=== PATIENT | female | born 1995 | race Caucasian/White ===

== ENCOUNTER 2018-09-12 08:59 | Day surgery (SDC) | payer OTHER ==
[~2018-09-12 08:59] MED LIST: CEFAZOLIN 2 GM/50 ML (PMX) 50 ML IVPB; NEOSTIGMINE 3 MG/3 ML SYRINGE; SOD CHLORIDE 0.9% 1,000 ML IV
[2018-09-12] MEDS ORDERED: IPRATROPIUM (NEB) 0.5 MG/2.5 ML AMP HHN (13:00)
[2018-09-12] MEDS ORDERED: DIPHENHYDRAMINE 50 MG INJ IV (13:00)
[2018-09-12] MEDS ORDERED: ALBUTEROL 0.083% (NEB) 2.5 MG/3 ML AMP HHN (13:00)
[2018-09-12] MEDS ORDERED: TRIMETHOBENZAMIDE 100 MG/ML VIAL IM (13:00)
[2018-09-12] MEDS ORDERED: EPHEDrine SULFATE 50 MG/5 ML SYG IV (13:00)
[2018-09-12] MEDS ORDERED: OXYCODONE/ACETAMINOPHEN (5/325) TAB PO ×2 (13:00)
[2018-09-12] MEDS ORDERED: FENTAnyl 50 MCG/ML VIAL IV ×3 (13:00)
[2018-09-12] MEDS ORDERED: LABETALOL HCL 20MG INJ IV (13:00)
[2018-09-12] MEDS ORDERED: hydrALAzine 20 MG INJ IV (13:00)
[2018-09-12] MEDS ORDERED: HYDROmorphONE 1 MG/5 ML IV SYRINGE IV (13:00)
[2018-09-12] MEDS ORDERED: ROCURONIUM 50 MG INJ (13:06)
[2018-09-12] MEDS ORDERED: GLYCOPYRROLATE 0.4 MG INJ (13:06)
[2018-09-12] MEDS ORDERED: DEXAMETHASONE 4 MG/ML 5 ML INJ (13:06)
[2018-09-12] MEDS ORDERED: PROPOFOL 20 ML (13:06)
[2018-09-12] MEDS ORDERED: CEFAZOLIN 1 GM INJ (13:06)
[2018-09-12] MEDS ORDERED: ONDANSETRON 4 MG INJ (13:06)
[2018-09-12] MEDS ORDERED: MIDAZOLAM 1 MG/ML 2 ML INJ (13:06)
[2018-09-12] MEDS ORDERED: FENTAnyl 50 MCG/ML VIAL ×2 (13:06→13:38)
[2018-09-12] MEDS ORDERED: BUPIVACAINE 0.5% (SDV) 30 ML INJ (13:07)
[2018-09-12] MEDS: MEPERIDINE 25 MG INJ IV (14:08)
[2018-09-12] MEDS: ONDANSETRON 4 MG INJ IV ×2 (14:08→14:56)
[2018-09-12] MEDS: HYDROmorphONE 1 MG/5 ML IV SYRINGE IV ×2 (14:08→14:19)
[2018-09-12] MEDS: MIDAZOLAM 1 MG/ML 2 ML INJ IV (14:09)
[2018-09-12] MEDS: HYDROCODONE/APAP (5/325) TAB PO (14:56)
== END 2018-09-12 15:31 | disposition home or self-care (01) ==
LOC: SDS 08:59
DX: K80.10 Calculus of gallbladder with chronic cholecystitis without obstruction (principal)
CPT/HCPCS: 47562; 84703; 88304